=== PATIENT | male | born 1995 | race Caucasian/White ===

== ENCOUNTER 2017-02-20 10:16 | Inpatient (IN) | payer OTHER ==
[~2017-02-20] VITALS: Ht 172.7 cm; Wt 106.3 kg
--- NOTE | ~2017-02-20 | INDIVTXPLN ---
"PATIENT: ANGÉLICA ANNE R | | [facility] UNIT #: [id number] | [address] AGE/SEX: 21 M : [birth year] | [address] | [place] [phone] ADMIT/REG DATE: 02/20/17 | ROOM: [facility] LOC: ADTC | ADTC | Individualized Treatment Plan Date: 03/12/17 Problem Statement/Issue Identified: Client needs to identify relapse warning signs and develop a plan to deal with them as they arise. Goal: Client will learn how to identify relapse triggers and make a plan of how to maintain his recovery. Objectives/Activities to achieve goal: 1. Client is to complete the Recovery Maintenance packet and process it with counselor. Due Date:03/20/17 Complete: Incomplete: Client signature Date Counselor signature Date Outcome/Measurement of Progress Towards Goal: Counselor's signature Date "
--- NOTE | ~2017-02-20 | TXPLANREV ---
"PATIENT: ANGÉLICA ANNE R | | [facility] UNIT #: [id number] | [address] AGE/SEX: 21 M : [birth year] | [address] | [place] [phone] ADMIT/REG DATE: 02/20/17 | [facility] LOC: ADTC | ADTC | Treatment Plan/Staffing Review Date: 03/05/17 Treatment plan was reviewed and determined appropriate as written: Yes Treatment plan was reviewed and the following changes/addition/deletions are necessary: Client is to continue working on treatment plan assignments. He is working on grief and feelings letters. Discharge plans were reviewed and determined appropriate as previously documented: Yes Discharge plans were reviewed and determined to be as follows: Client has made it perfectly clear he is returning to [place] and will get into an aftercare program when he gets there. He will also be recommended to attend AA/NA meetings, as well as to get and call a sponsor on a regular basis. Other pertinent issues discussed during this staffing review include: None at this time. Staff Present: Allison De La O PRIMARY COUNSELOR: KAE Torres Client Signature Counselor Signature Date Time "
--- NOTE | ~2017-02-20 | INDIVTXPLN ---
"PATIENT: ANGÉLICA ANNE R | | [facility] UNIT #: [id number] | [address] AGE/SEX: 21 M : [birth year] | [address] | [place] [phone] ADMIT/REG DATE: 02/20/17 | ROOM: [facility] LOC: ADTC | ADTC | Individualized Treatment Plan Date: 02/26/17 Problem Statement/Issue Identified: Client has learned to deny or stuff feelings; needs to learn to identify and process feelings, including grief, in a clean/sober manner. Goal: Client will learn how to identify and express feelings in a healthy, clean/sober manner. Objectives/Activities to achieve goal: 1. Client is to complete the Grief packet, and process it with counselor. Due Date:03/05/17 Complete: Incomplete: 2. Client is to write feelings letters to the following people, each separately, and process them with counselor and in family group, if able: His father, sisters, brother and grandmother. Due Date:03/05/17 Complete: Incomplete: Client signature Date Counselor signature Date Outcome/Measurement of Progress Towards Goal: Counselor's signature Date "
--- NOTE | ~2017-02-20 | CLPRLASSUM ---
PATIENT: ANGÉLICA ANNE R | | [facility] UNIT #: [id number] | [address] AGE/SEX: 21 M : [birth year] | [address] | [place] [phone] ADMIT/REG DATE: 02/20/17 | ROOM: [facility] LOC: ADTC | ADTC | Client Problem List/Assessment Summary Date: 02/26/17 Problems identified by the client: Client reported he is now on probation on drug charges and was told he needed to come to treatment. Problems identified by significant others: Same Client's Strengths: Client identified he is friendly and hard working as his strengths. Problem List:Code: T Client continues to use alcohol &/or drugs despite ongoing negative consequences. Code: T Client does not "reach-out to others for help" and instead resumes using alcohol &/or drugs. 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 Code: T Client needs to identify relapse warning signs and develop a plan to deal with them as they arise. Code Carrera: T: to be addressed during course of treatment O: problem noted, expected to resolve itself with abstinence--specific tx plan not required R: problem noted, will be referred upon discharge PRIMARY COUNSELOR: KAE Torres
--- NOTE | ~2017-02-20 | INDIVTXPLN ---
"PATIENT: ANGÉLICA ANNE R | | [facility] UNIT #: [id number] | [address] AGE/SEX: 21 M : [birth year] | [address] | [place] [phone] ADMIT/REG DATE: 02/20/17 | ROOM: [facility] LOC: ADTC | ADTC | Individualized Treatment Plan Date: 02/26/17 Problem Statement/Issue Identified: Client continues to use alcohol &/or drugs despite ongoing negative consequences, and he did not reach out to someone for help. Goal: Client will learn to identify negative consequences of his addiction, attend AA/NA meetings and meet men in recovery. Objectives/Activities to achieve goal: 1. Client is to complete the How to Get Started packet, process it with counselor and selected pages in group. Due Date:03/01/17 Complete: Incomplete: 2. Client is to complete Step 1, process it with counselor and selected pages in group. Due Date:03/05/17 Complete: Incomplete: 3. Client is to attend AA/NA meetings, ask for and get at least 5 names and numbers of men in recovery and share that list with counselor. Due Date:ongoing Complete: Incomplete: Client signature Date Counselor signature Date Outcome/Measurement of Progress Towards Goal: Counselor's signature Date "
--- NOTE | ~2017-02-20 | TXPLANREV ---
"PATIENT: ANGÉLICA ANNE R | | [facility] UNIT #: [id number] | [address] AGE/SEX: 21 M : [birth year] | [address] | [place] [phone] ADMIT/REG DATE: 02/20/17 | ROOM: [facility] LOC: ADTC | ADTC | Treatment Plan/Staffing Review Date: 03/19/17 Treatment plan was reviewed and determined appropriate as written: Yes Treatment plan was reviewed and the following changes/addition/deletions are necessary: Client is to continue working on treatment plan assignments. He is finishing up with recovery maintenance. Discharge plans were reviewed and determined appropriate as previously documented: Yes Discharge plans were reviewed and determined to be as follows: Client plans to go home to [place], attend aftercare with Ruth Thomas, and is to attend 3-5 AA/NA meetings per week, call his sponsor on a regular basis and return to his job. Other pertinent issues discussed during this staffing review include: None Staff Present: Jossy De La O PRIMARY COUNSELOR: KAE Torres Client Signature Counselor Signature Date Time "
--- NOTE | ~2017-02-20 | TXPLANREV ---
"PATIENT: ANGÉLICA ANNE R | | [facility] UNIT #: [id number] | [address] AGE/SEX: 21 M : [birth year] | [address] | [place] [phone] ADMIT/REG DATE: 02/20/17 | [facility] | Treatment Plan/Staffing Review Date: 03/12/17 Treatment plan was reviewed and determined appropriate as written: Yes Treatment plan was reviewed and the following changes/addition/deletions are necessary: Client is to continue working on treatment plan assignments. He is finishing up with feelings letters and will begin working on relapse prevention. Discharge plans were reviewed and determined appropriate as previously documented: Yes Discharge plans were reviewed and determined to be as follows: Client plans to return to [place], where he has a counselor, and he is scheduled to see her on 03/21 @ 2:00. 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 Other pertinent issues discussed during this staffing review include: None at this time. Staff Present: Allison De La O PRIMARY COUNSELOR: KAE Torres Client Signature Counselor Signature Date Time "
--- NOTE | ~2017-02-20 | RESCARESUM ---
"PATIENT: ANGÉLICA ANNE R | | [facility] UNIT #: [id number] | [address] AGE/SEX: 21 M : [birth year] | [address] | [place] [phone] ADMIT/REG DATE: 02/20/17 | ROOM: [facility] LOC: ADTC | ADT | Summary of Residential Care Primary Counselor: Kenya PAL Date of Admission: 02/20/17 Date of Discharge: 03/20/17 Referral Source: Court Bailiff Or Sheriff, Jarett Kohli Primary Care Provider Prior to Admission: Self Admitting Diagnosis: F15.20 Stimulant Use Disorder, Severe; F12.20 Cannabis Use Disorder, Severe; F10.20 Alcohol Use Disorder, Moderate; Obesity; Z720 Tobacco Use; Elevated Blood Pressure Discharge Diagnosis: Same Goals Achieved: Angélica was able to identify negative consequences of his addiction, as well as to gain insight to the disease concept. He completed written assignments, including Step 1, and he wrote and processed feelings letters to various family members. He worked on recovery maintenance. Continued Obstacles to Sobriety/Relapse Issues: Women, self-will, not getting a sponsor, not going to meetings or aftercare, not dealing with feelings, not returning to his job and not learning how to work a strong program of recovery. Family Issues Addressed: The only issues addressed were with his mother, who . He was able to complete the grief packet and he wrote feelings letters to other various family members. Y Individual Therapy Y Group Therapy Y Educational Series on Substance Abuse Y Parents/Significant Others Attended Family Program N Acute Medical Problems During the Course of Treatment N Transferred to Hospital During the Course of Treatment Y Accepting of Substance Abuse Problem N Non-accepting of Substance Abuse Problem N Required Psychological or Psychiatric Consultation During the Course of Treatment Completed AA Step # 1 During This Level of Care Significant Incidences During Treatment: Angélica had to be placed on a change contract, so he could focus on himself and his own recovery, and not the women. Reason For Discharge: Y Completed Residential [place] Goals and Ready For Next Level of Care N Left Tx Against Medical Advice/Treatment Goals Not Complete N Completed Residential Tx Goals But Refusing Continuing Care Recommendations PATIENT: ANGÉLICA ANNE R | | [facility] UNIT #: [id number] | [address] AGE/SEX: 21 M : [birth year] | [address] | [place] [address] ADMIT/REG DATE: 02/20/17 | ROOM: [facility] LOC: ADTC | ADTC | Summary of Residential Care N Discharged Due to Noncompliance/Treatment Goals not Completed N Discharged Earlier Than Planned Due to: Continuing Care Plan/Recommendations: N Intensive Partial Care Y Sponsor N Partial Care Y AA Meetings/NA Meetings Y Outpatient N Co-dependency Services N Therapeutic Community N 1/[address] N Mental Health Therapy N Marriage Counseling N Other Specific Continuing Care Plan: It is recommended that Angélica go to see Ruth Elizabeth for his aftercare plan, beginning on 03/21 @ 2:00. It is further recommended that he attend 3-5 AA/NA meetings per week, get and call a sponsor on a regular basis, return to his job, and learn how to work a strong program of recovery. PRIMARY COUNSELOR: KAE Torres"
--- NOTE | 2017-02-20 15:00 | NUR ---
INITIAL SESSION 1 HR: Clt was oriented to tx plans, schedules and what to expect from things. He has never been to tx, was placed on 5 yrs probation on a drug and gun charge, and has several family members living here and in [place]. Clt stated he is very nervous and scared about this, as he's never been to tx. He heard it only takes a couple days to start to feel comfortable. He is to begin working on initial paperwork.
--- NOTE | 2017-02-20 15:07 | NUR ---
ADMISSION NOTE Rights/Responsibilities: Copy given and explained to client. Signed and accepted by client. Client oriented to physical lay out of the ADTC unit, given Big Book and admission packet. A Rod was assigned. Shola Client is a 21yr old single male. Referred by probation. Brought to tx by sister. Lives in [place], [place]. DOC, Cannabis, last used 03/03/17, 1/2 oz. daily. No allergies, No meds. Whole family plans on participating in tx. Was searched no contraband found. Initial paperwork given and guidelines gone over. Doctor has been notified.
--- NOTE | 2017-02-20 20:55 | NUR ---
education: 1 hour video on unresolved anger and group discussion with counselor
--- NOTE | 2017-02-20 22:04 | NUR ---
Tech note: Tech note: Client worked on beaded project and attended an onsite NA meeting. He was checked into his room, seen by the DR and gave his first intro. SE; Entering treatment
--- NOTE | 2017-02-21 04:02 | NUR ---
Bed note: Client was in bed with eyes closed and no distress at all bed checks.
--- NOTE | 2017-02-21 08:20 | NUR ---
TRAUMA NOTE: Clt identified loss of a loved one as trauma.
--- NOTE | 2017-02-21 08:21 | NUR ---
FAMILY CONTACT: A call was made to ari's sister in [place], who was informed of visiting hours and family edu. A request that she return my call was made. Another call was made to GI family and the same info was left.
--- NOTE | 2017-02-21 10:19 | NUR ---
Tech Note: Client participated in Spiritual Enrichment. Client stated that he is working on,"How to Get Started in Treatment." Client stated that he knows one male and one female peer from outside of treatment.
--- NOTE | 2017-02-21 11:30 | NUR ---
AM GRP 1.5 HRS, Ratio 1:11/ Clt sat mostly quiet, after hearing grp rules.
--- NOTE | 2017-02-21 13:37 | NUR ---
Education 1 Hour: Client heard a presentation from a member of the recovery community who shared his experience, strength and hope.
--- NOTE | 2017-02-21 16:26 | NUR ---
step education 1 hr/ Focus was on step 2, handed out some questions they completed on paper and then opened it up for discussion. This client participated.
--- NOTE | 2017-02-21 23:29 | NUR ---
Tech Note: Client attended Guided Meditation and A.A.Meeting. Client was late to Community Meeting due to showering. He showed up for meeting at 2200 SE: Absent
--- NOTE | 2017-02-22 04:24 | NUR ---
Eduction: 1 Hour. Client attended "Unresolved Anger" video & discussion presented by staff.
--- NOTE | 2017-02-22 11:56 | NUR ---
Group 1.5 Hr Ratio 1:9/Topics today were two getting started packets, forgiveness and dealing with bad childhoods. Client was quiet all of group but did appear to be paying attention.
--- NOTE | 2017-02-22 13:00 | NUR ---
PEER REVIEWS 1.5 HRS: Clt participated in peer review process and was able to give open and honest feedback to those receiving a review.
--- NOTE | 2017-02-22 16:20 | NUR ---
Tech Note: Client participated in group walk for exercise and watched "Recovery Issues Part 3" for afternoon video. Client is working on Getting Started.
--- NOTE | 2017-02-22 22:44 | NUR ---
TECH NOTE: Client participated in reading guidelines and watched tv/movies. Attended optional off site AA meeting SE: all day
--- NOTE | 2017-02-23 04:08 | NUR ---
Bed Note: Clt lay motionless in bed with eyes closed showing no distress at all bed checks.
--- NOTE | 2017-02-23 16:00 | NUR ---
Tech Note: Client attended NA Panel and is working on Getting Started. Clt had visitors.
--- NOTE | 2017-02-23 20:11 | NUR ---
Tech note: Clt played a game for recreation and attended offsite AA mtg. Watched tv and played cards. SE was seeing sister and niece
--- NOTE | 2017-02-24 04:34 | NUR ---
Bed Note: Clt lay motionless in bed with eyes closed showing no distress at all bed checks.
--- NOTE | 2017-02-24 12:02 | HP ---
ADMIT: 02/20/2017 RM/LOC: Vel[facility] MR#: [id number] [address] [place], [place] [address] ANGÉLICA ANNE [address] [address] History and Physical SEX: M AGE: 21 : 1995 DATE OF SERVICE: CHIEF COMPLAINT: Drug and alcohol dependency. HISTORY OF PRESENT ILLNESS: Angélica is a 21-year-old, single, male, referred to residential level of treatment at [facility] on February 20, 2017. He had prior arrest for possession of meth and marijuana and was in and out of prison for about 10 months. He states he was subsequently referred to residential level of treatment. Angélica's drug of choice on admission is cannabis. He first started smoking pot around 11 years of age with friends. In grade school, he smoked around weekends. By [employer], he was smoking daily and would smoke an 8 to 0.25 ounce pot a week. From high school until a year ago, he would smoke a half to an ounce of pot a day. He states his last use was on March 03, 2016, prior to going to prison. Second drug of choice is methamphetamines. He first started using meth at 16 years of age when he smoked with his friends. Initially used about a g on weekends. He dropped out of high school when he was around 18, he has been doing daily meth off and on ever since. He states he usually about an eight ball. His heaviest use was 19 when he was using over an 8-ball a day. He denies ever doing IV drugs. He states he had an uncle who of IV drug use and has never used it. His last methamphetamine use was 03/03/2016. Third drug of choice is likely alcohol. He states he never really it used a lot. He states he sporadically used it. He would usually only have a couple mixed drinks. He admits to being intoxicated about 10 times his life. He states that he got a DUI a couple days after his 19th birthday. His last alcohol was 03/03/2016. He denies any other illicit drug use. PAST MEDICAL HISTORY: Operations: None. Illnesses: None. MEDICATIONS: None. ALLERGIES: NONE KNOWN. SOCIAL HISTORY: He is a 21-year-old, single, male. He has no children. He smokes less than one pack of cigarettes daily. FAMILY HISTORY: Includes coronary artery disease, cancer, and hypertension in his mother and maternal grandmother, diabetes in grandparents. Father was an alcoholic. Mom was a prescription pain pill user, and a number of uncles, who used methamphetamines and one of IV meth overdose. REVIEW OF SYSTEMS: Negative. ADMIT: 02/20/2017 RM/LOC: Velia [facility] MR#: [id number] [facility] [address] [address] [place] [address] [place] [address] History and Physical SEX: M AGE: 21 : 1995 PHYSICAL EXAMINATION: VITAL SIGNS: He is 5 feet 8 inches with a weight of 106 kg. Blood pressure 147/95 with a pulse of 97 and temp 96.9. GENERAL APPEARANCE: Is that of a 21-year-old male, who is alert, oriented, in no acute distress. Appears his stated age. HEENT: Pupils are reactive. Extraocular muscle intact. TMs normal. Throat normal. NECK: Normal. HEART: Regular without murmur. LUNGS: Clear. ABDOMEN: Soft, nontender, benign. AND RECTAL: Deferred. EXTREMITIES: Reveal no clubbing, cyanosis, edema, or tracks. NEURO: Exam is normal including light touch, strength, DTRs. ASSESSMENT: 1. Stimulant use disorder, severe, in full sustained remission. 2. Cannabis use disorder, severe, in full sustained remission. 3. Alcohol use disorder, [id number], in full sustained remission. 4. Obesity. 5. Tobacco use disorder. 6. Elevated blood pressure. PLAN: We will do serial blood pressure and heart rate monitoring. Proceed with drug and alcohol abuse dependency treatment and counseling. Further evaluation and management based on course during hospitalization. Please see his hospital record for the details. Braxton Dillon MD/ abigail JOB #: [id number] CC: Braxton Dillon, Attending Physician FAMILY PHYSICIAN, Family Physician
--- NOTE | 2017-02-24 15:43 | NUR ---
Tech Note: Client participated in Big Book Study. Client stated that he is working on, "How to Get Started in Treatment."
--- NOTE | 2017-02-24 22:36 | NUR ---
Tech Note: Clt attended AA panel, played game with peer and watched tv. SE was tono
--- NOTE | 2017-02-25 04:36 | NUR ---
Bed Note: Clt lay motionless in bed with eyes closed showing no distress at all bed checks.
--- NOTE | 2017-02-25 10:13 | NUR ---
Tech notes: Client is working on Getting started
--- NOTE | 2017-02-25 12:43 | NUR ---
Group 1.5 hr/10:1 Clients heard peers share packets, this client was attentive.
--- NOTE | 2017-02-25 13:30 | NUR ---
Education: Client attended education by Franci on Infection prevention.
--- NOTE | 2017-02-25 16:00 | NUR ---
Recovery 101 1 hr/ Clients all were asked to share what they worked on in treatment or past treatments that really helped them and/or their experience with working an AA/NA program of recovery-what went well. This client was attentive.
--- NOTE | 2017-02-25 18:10 | NUR ---
Education: 1 Hour. Client attended "Adult Children of Alcoholics" lecture presented by staff.
--- NOTE | 2017-02-25 23:13 | NUR ---
tech note: Client played a game for recreation & attended onsite NA meeting.Seen sitting by female peer in the NA meeting-they were sitting without other people right next to them. SE: Supper.
--- NOTE | 2017-02-26 04:31 | NUR ---
BED NOTE: Client was in bed, motionless with eyes closed all three bed checks.
--- NOTE | 2017-02-26 11:04 | NUR ---
IS 1 HR: Processed padmini's BPS. He went into great detail about his childhood. He stated he first used any type of drug at age 11. His parents after his mom started using pills badly. He lived w/ her, but was taken from her when he was young. He lived w/ his Dad for a short period of time, only to return to her. SHe from her disease so padmini will need to do grief work on this. His Dad has remarried and he has 3 little brothers and sisters from this marraige, and he has a brother and sister, who are biological. He also has a sister who is his Mom's daughter w/ someone other than his Dad. He explained that when he went to court, he was sent to [facility] for 90 days, which he understands is [facility], until the roll reclaimer sentenced him here and probation. Padmini hopes to return to [place], where he'll live w/ his sister and do his probation there.
--- NOTE | 2017-02-26 16:00 | NUR ---
Relapse Prevention, 1.0 hours, Client attended and actively participated in relapse prevention education which focused on internal and external triggers.
--- NOTE | 2017-02-26 16:33 | NUR ---
Tech Note: Client participated in Nutritional Services presentation and is working on Getting Started.
--- NOTE | 2017-02-26 22:41 | NUR ---
Education: 1 hour lecture given by counselor on co-dependency
--- NOTE | 2017-02-26 22:47 | NUR ---
Tech note: clients played catchphrase for rec, participated in guided meditation and attended AA meeting SE: 6 month coin
--- NOTE | 2017-02-27 04:34 | NUR ---
bed note: client was in bed with eyes closed and motionless at all bed checks.
--- NOTE | 2017-02-27 09:50 | NUR ---
Tech notes: Client is working on Step 1
--- NOTE | 2017-02-27 11:30 | NUR ---
GROUP 1.5 HRS. 1:12 Clients participated in orienting new peer to purpose and rules of group. Discussion included healthy coping skills to deal with stress and feelings. Peer processed from his step 1 assignment identifying how he betrayed his values in his addiction. This client sat quiet.
--- NOTE | 2017-02-27 12:42 | NUR ---
Group 1.5 hr/10:1 Clients heard peers share packets, this client was attentive.
--- NOTE | 2017-02-27 13:13 | NUR ---
Education note: Client attended educational speaker Mario Linares
--- NOTE | 2017-02-27 17:33 | NUR ---
SPIRITUAL EDUCATION 1 HR. Today we used music to invoke discussion, symbolize how it can be either positive spirituality or negative spirituality, and discussed the feelings. We used one song that depicted addiction, one that talked about recovery, and since we are close to Mother's Day, one that depicted addiction in parents and forgiveness.
--- NOTE | 2017-02-27 18:15 | NUR ---
Education: 1 Hour. Client attended "Boudaries" lecture given by staff.
--- NOTE | 2017-02-27 22:50 | NUR ---
Tech Note: Client played a game for rec, and attended The on unit N.A.Meeting. SE: 6 Month tag in N.A.
--- NOTE | 2017-02-28 04:28 | NUR ---
Bed Note: Client was in bed with eyes closed and motionless at all bed checks.
--- NOTE | 2017-02-28 11:30 | NUR ---
AM GRP 1.5 HRS, Ratio 1:11/ Clt sat mostly quiet, until prompted, then shared about himself, and how he "knows" what he'll have to do to stay clean/sober. He plans to return to [place] when he's done w/ tx.
--- NOTE | 2017-02-28 16:45 | NUR ---
FAMILY EDUCATION 3 HRS. Client attended alone and took part in the discussion on the disease concept. All related to progression and consequences of addiction. This client was mostly quiet but appeared attentive.
--- NOTE | 2017-02-28 18:15 | NUR ---
Education 1HR: Clt watched video called "Predator part 1" by Lion Siegel with staff present.
--- NOTE | 2017-02-28 23:01 | NUR ---
Tech Note: Client took a walk for rec and attended the A.A.Meeting. SE: Walk for rec
--- NOTE | 2017-02-28 23:20 | NUR ---
1:00 pm. Education Note: Client watched video "Inside the Addictive Personality"
--- NOTE | 2017-03-01 04:06 | NUR ---
Bed Note: Client was in bed and motionless at all bed checks.
--- NOTE | 2017-03-01 11:30 | NUR ---
Group 1.5 hr/ 11:1 Clients all involved in discussions about addiction and recovery. THis client was attentive, was asked to share about himself and did tell he used weed since 11 and meth since 17, hurt grandma with his addiction which he hates. A GF moved him out of [place] which helped him for awhile, ashamed he threw his clean time away.
--- NOTE | 2017-03-01 14:36 | NUR ---
PEER REVIEWS 1.5 HRS: Clt participated in peer review process and was able to give open and honest feedback to those receiving a review.
--- NOTE | 2017-03-01 15:37 | NUR ---
Tech Note: Client participated in group walk and watched "Marijuana" by Lion Siegel. Assignment being worked on is Step 1.
--- NOTE | 2017-03-01 23:08 | NUR ---
Tech note: Client played games and watched movies. Client walked to an offsite AA meeting.
--- NOTE | 2017-03-02 03:57 | NUR ---
Bed note: Client was in bed with eyes closed and no distress at all bed checks
--- NOTE | 2017-03-02 12:30 | NUR ---
IS 1 HR: Padmini shared from his How to Get Started pkt. He is to process in grp. He stated he is struggling with even trying to get numbers here, as he is planning to return to [place] as soon as he's done with tx. He heard how this is just practice for him to learn how to approach men and ask for their number. He stated it is hard for him to go to new people, but it's better than it used to be. Padmini stated he has a brother from [place] who will be coming to visit this weekend.
--- NOTE | 2017-03-02 16:41 | NUR ---
Tech Note: Client went to A.A.Meeting at [address]. Client also went on a walk and had a visit. Client is working on Step one and had appointment with counselor
--- NOTE | 2017-03-02 21:53 | NUR ---
Tech note: Client's were just starting to grill around 6pm so we did not have rec this evening. Client walked to an offsite AA meeting, played games and watched movies. SE; Family
--- NOTE | 2017-03-03 04:43 | NUR ---
tech note: client was motionless in no distress at all bed checks.
--- NOTE | 2017-03-03 17:22 | NUR ---
Tech Note: Client participated in Big Book study. Client attended pentecostal. Client stated that he is working on Step One. Client received a visit.
--- NOTE | 2017-03-03 23:11 | NUR ---
tech note: Client participated in community clean & co-chaired CONTROLS DESIGN ENGINEER meeting. Client talked on the phone. SE: CONTROLS DESIGN ENGINEER.
--- NOTE | 2017-03-04 04:22 | NUR ---
tech note: client was motionless in no distress at all bed checks.
--- NOTE | 2017-03-04 11:30 | NUR ---
Experiential Group 1.5 hr/ Clients all participated in looking at family dynamics and feelings through sculpturing and participated with feedback, relating and/or role-playing. This client was attentive.
--- NOTE | 2017-03-04 17:00 | NUR ---
FAMILY EDUCATION 3 HRS. Client attended alone and took part in the discussion on the family roles, codependency and detachment. Client was mostly quiet but did participate when prompted.
--- NOTE | 2017-03-04 17:32 | NUR ---
Tech Note: Client went for an outdoor walk in the afternoon. Client stated that he is working on Step One.
--- NOTE | 2017-03-04 20:44 | NUR ---
FAMILY GROUP 5:1/2/ HR: Client, peers and attending family members heard FEELINGS LETTERS processed by one family. These letters and the subject matter, their daughter's and the resulting chain of events led to much personal sharing. Several members in the group realized that they had known the young woman and related their personal experiences with her and the lives she had touched during her brief life. The couple seemed to be both touched and comforted. This client, though mostly quiet, did respond when prompted and shared briefly about his mother's sudden (apparent consequences of a prescription drug addiction) when he was only 13 y/o. Client verbalized regret over the joking references to "leaving to get f__ked up" as the last words he said to his mother before her later that evening. Client said he is working on a Grief packet.
--- NOTE | 2017-03-04 20:45 | NUR ---
Education 1 HR: Clt listened to lecture given by counselor on communication.
--- NOTE | 2017-03-04 23:00 | NUR ---
Client attended Family SE: Group
--- NOTE | 2017-03-05 04:55 | NUR ---
Client was in bed and motionless at all bed checks
--- NOTE | 2017-03-05 11:40 | NUR ---
GROUP 1.5 HRS. 1:11 Client participated in orienting new peer to purpose and rules of group. Group discussion included the progression of the addiction and the effects on family and lives including suicide attempts. Peer processed goodbye letter to addiction and discussed the need to end the relationship. This client was quiet but said he had assignment to process however time did not permit today so he agreed to go tomorrow.
--- NOTE | 2017-03-05 15:06 | NUR ---
Tech Note: Client joined group for afternoon walk, listened to speaker from the [facility] [place] and is working on Step 1.
--- NOTE | 2017-03-05 15:44 | NUR ---
Tech Note: Client attended Relapse Prevention education with Kenya.
--- NOTE | 2017-03-05 19:50 | NUR ---
Education: 1 hour lecture on STD/AID/HIV gipravin by [facility].
--- NOTE | 2017-03-05 22:22 | NUR ---
Tech note : Client worked on oneforty crafts and get well cards. Client participated in guided meditation and went to an onsite AA meeting.
--- NOTE | 2017-03-06 04:13 | NUR ---
Bed note: Client was in bed with eyes closed and no distress at all bed checks
--- NOTE | 2017-03-06 11:09 | NUR ---
Tech Note: Client is working on Step 1 and a Grievance Letter.
--- NOTE | 2017-03-06 11:30 | NUR ---
GROUP 1.5 HRS. 1:10 Group discussion included issues and conflict between peers on the unit. This client was prompted by counselor to process his HOW TO GET STARTED IN TREATMENT as there was not time in yesterday's group. Client received positive support from peers and all encouraged him to open up. Peer processed step 1 assignment identifying how values are betrayed in addiction.
--- NOTE | 2017-03-06 13:17 | NUR ---
Tech Note: Client walked in the hallways for afternoon exercise.
--- NOTE | 2017-03-06 13:21 | NUR ---
Education One Hour: Client heard from members of the recovery community, who shared their experience, strength and hope.
--- NOTE | 2017-03-06 17:25 | NUR ---
SPIRITUAL EDUCATION 1 HR. Topics today were orienting newcomers and then broke into groups and did presentations on their sections from TOWAR[employer] SPIRITUALITY.
--- NOTE | 2017-03-06 18:44 | NUR ---
Education: 1 hour lecture given by counselor on "Disease concept".
--- NOTE | 2017-03-06 22:13 | NUR ---
Tech note: Client played catch phrase for rec and attended an onsite NA meeting. SE: Rec
--- NOTE | 2017-03-07 04:59 | NUR ---
Bed note: Client was in bed with eyes closed and no distress at all bed checks.
--- NOTE | 2017-03-07 10:36 | NUR ---
Tech Note; Client participated in light stretching for morning exercise. Client stated that he is working on Step One.
--- NOTE | 2017-03-07 11:30 | NUR ---
AM GRP 1.5 HRS, Ratio 1:12/ Clt participated in grp discussion on various topics, including having fun in recovery, how addiction hurts everyone around them, and what to do just to stay in recovery. This clt participated, however, he generally needs to be prompted.
--- NOTE | 2017-03-07 15:59 | NUR ---
Step Education 1 hr/Focus was on step 4 making a searching and fearless moral inventory of ourselves. Handed out some questions each person answered on paper and then we discussed. This person participated.
--- NOTE | 2017-03-07 16:00 | NUR ---
IS 1 HR: Padmini shared that he didn't have his step 1 done yet, so heard it needs to get done. He stated he is stuck on pages 10-11 so we discussed how those are the most important pages, as they help him see the negative consequences of his addiction. Padmini shared about things w/ his Mom's and his grandma "knowing" something was wrong. He is finishing up with the grief pkt too. Padmini's plans are to return to [place] and see Ruth Thomas for aftercare.
--- NOTE | 2017-03-07 16:19 | NUR ---
Education 1 Hour: Client heard from two members of the recovery community, who shared their experience strength and hope.
--- NOTE | 2017-03-07 20:23 | NUR ---
Education: 1 Hour. Client attended Fadi Thompson "Unhealthy Families" video.
--- NOTE | 2017-03-07 22:52 | NUR ---
Client went on a walk for rec, participated in guided meditation, and attended the on unit A.A.Meeting. SE: Get to go home instead of residential house.
--- NOTE | 2017-03-08 05:33 | NUR ---
tech note: client was motionless in no distress at all bed checks.
--- NOTE | 2017-03-08 11:58 | NUR ---
Group 1.5 Hr Ratio 1:11/Topics today were two Getting started packets, feelings letters and a letter to self. Client was quiet all of group and did not share a thing.
--- NOTE | 2017-03-08 14:37 | NUR ---
Tech Note: Client joined our group walk for exercise. Watched video titled "Sound of Silence" and is working on Step 1 and a Nafham Pckt.
--- NOTE | 2017-03-08 15:44 | NUR ---
PEER REVIEWS 1.25 HRS: Clt participated in peer reviews and took a risk to give open and honest feedback to those receiving a review.
--- NOTE | 2017-03-08 20:24 | NUR ---
TECH NOTE: Client participated in reading of guidelines, watched TV/movies SE: All day
--- NOTE | 2017-03-09 04:30 | NUR ---
BED NOTE: Client was in bed, motionless with eyes closed all bed checks.
--- NOTE | 2017-03-09 16:12 | NUR ---
Tech Note: Client is working on a grief packet. Had visit from family.
--- NOTE | 2017-03-09 20:16 | NUR ---
Tech note: Clt played a game for recreation and attended offsite AA mtg. Watched tv, used phone and played cards. SE was NERY
--- NOTE | 2017-03-10 04:24 | NUR ---
BED NOTE: Client was in bed motionless with eyes closed all three bed checks.
--- NOTE | 2017-03-10 15:39 | NUR ---
Tech Note: Client stated that he is working on, "Grief."
--- NOTE | 2017-03-10 22:55 | NUR ---
Tech Note: Client attended the A.A.Panel with Vik Martinez Client also attended the COMMERCIAL REPORTER meeting SE: COMMERCIAL REPORTER Meeting
--- NOTE | 2017-03-11 04:35 | NUR ---
Client was laying in bed and motionless at all bed checks.
--- NOTE | 2017-03-11 09:40 | NUR ---
Tech note: Client is working on Grief pkt.
--- NOTE | 2017-03-11 12:53 | NUR ---
Education Note: Clients attended speaker for education Kit J.
--- NOTE | 2017-03-11 15:56 | NUR ---
PEER REVIEWS 1.25 HRS: Clt participated in peer reviews and took a risk to give open and honest feedback to those receiving a review.
--- NOTE | 2017-03-11 16:00 | NUR ---
RECOVERY 101 1 hr/ Clients discussed what they are learning from attending the 12 step recovery meetings about fundamentals of recovery, how to work a program such as: get and use a sponsor, work the steps, read C.A.L., HOW/honesty, openminded &willing, service work, HP/spirituality, opening up, slogans, serenity prayer, home group/meetings, etc. Clients shared and got into story telling at times. They learned 15% is addiction and 85% is the living problem so this is why keep going to meetings and working the program is vital.
--- NOTE | 2017-03-11 18:18 | NUR ---
Education: 1 Hour. Client attended "Feelings" lecture presented by staff.
--- NOTE | 2017-03-11 22:50 | NUR ---
tech note: Client played Catch Phrase for recreation & attended onsite NA meeting. Client was redirected by staff for eating food in the toney. Client was seen sitting alone with female peer ST in the recreation room before the NA meeting started. He & this female peer ST went out to the smoke hut & were late for the NA meeting. After the client meeting this client was swinging a male peer & was redirected by tech to stop. Client wasn't in his room by [place]. SE: NA meeting.
--- NOTE | 2017-03-12 04:45 | NUR ---
tech note: client was motionless in no distress at all bed checks.
--- NOTE | 2017-03-12 10:18 | NUR ---
REFERRAL: Clt has an appt scheduled with his counselor in [place], Ruth Thomas on 03/21 @ 2:00.
--- NOTE | 2017-03-12 15:06 | NUR ---
A.M. 1.5 hr group/ratio 10/31/ Group heard a step 1, how to get started, grief letter and discussed the importants of not glorifying as one client was confronted on this. This client shared his step one and did a fair job.
--- NOTE | 2017-03-12 15:46 | NUR ---
Relapse Prevention, 1.0 hours, Client attended and actively participated in relapse prevention education which focused on compulsive behaviors and relapse.
--- NOTE | 2017-03-12 16:05 | NUR ---
Tech Note: Client watched Part 2 of Predator by Lion Siegel and had Relapse Prevention for 3:00 education. Assignment being worked on: Feelings Letters.
--- NOTE | 2017-03-12 16:21 | NUR ---
Education Note: Client attended Relapse Prevention presented by counselor Allison.
--- NOTE | 2017-03-12 20:16 | NUR ---
Education: 1 hour lecture given by counselor on relapse.
--- NOTE | 2017-03-12 20:23 | NUR ---
tech note: Client went for walk for rec, participated in guided meditation and attended AA meeting
--- NOTE | 2017-03-12 23:24 | NUR ---
Tech Note: Client went on a walk for rec and attended the on unit A.A.Meeting. Client participated in Guided Meditation at 1930. SE: All Day
--- NOTE | 2017-03-13 04:54 | NUR ---
Bed note: client was in bed with eyes closed and no distress at all bed checks.
--- NOTE | 2017-03-13 07:57 | NUR ---
IS 1 HR: Clt was confronted about being seen sitting with the women. He heard it is detrimental to their tx, let alone, is own. He was unable to understand, until we discussed it, and was then able to see how important male relationships are for men in recovery, and the same for women. He stated he has always gotten along better w/ women, so heard from here on out, he needs to form relationships with men and not sit w/ women.
--- NOTE | 2017-03-13 10:17 | NUR ---
Tech notes: Client is working on Fl's
--- NOTE | 2017-03-13 11:30 | NUR ---
BIG GROUP 4:21 Group was brought together to discuss issues of old behaviors, treatment relationships and other violations of guidlines that are being kept secret. All were encouraged to look at the difficulty they have confronting with assertiveness, rather than passive/aggressive. This client was confronted by his counselor as he was sitting by new female peer. He is noted to have a smirk on his face throughout the entire group. He did change seats with female peer after she was confronted about sitting by another male peer. Peers had confronted this client about spending excessive amount of time female peer .
--- NOTE | 2017-03-13 13:45 | NUR ---
Educational note: Client watched a video for education.
--- NOTE | 2017-03-13 17:15 | NUR ---
SPIRITUaL EDUCATION 1 HR. Clients were oriented to the group and learned difference between spirituality and tenriism. We addressed GRATITUDE today with discussion, worksheet and activity.
--- NOTE | 2017-03-13 18:20 | NUR ---
Education: 1 Hour. Client attended "Self Esteem" lecture presented by staff.
--- NOTE | 2017-03-13 23:06 | NUR ---
tech note: client went on a walk for recreation & attended the onsite NA meeting. Complimented by peer for opening up. Client was horseplaying during the client meeting with a male peer,when tech looked at him he stopped. SE: NA
--- NOTE | 2017-03-14 05:08 | NUR ---
Bed Note: Clt lay motionless in bed with eyes closed showing no distress at all bed checks.
--- NOTE | 2017-03-14 11:07 | NUR ---
Tech Note: Client participated in Spiritual Enrichment. Client stated that he is working on writing Feelings Letters.
--- NOTE | 2017-03-14 11:30 | NUR ---
AM GRP 1.5 HRS, Ratio 1:11/ Clt sat quietly, and each time it was brought up about the relationship he and a female peer are having, of which he continues to deny, he would shake his heard, roll his eyes and wasn't willing to talk about it.
--- NOTE | 2017-03-14 14:19 | NUR ---
IS 1 HR: Clt came in immediately defensive, asking why we were meeting, and when asked what he thinks is going on, he had an attitude. He asked if he is being placed on a contract and he heard yes. He was confronted, as one of the counselors heard him say if he gets placed on a contract, he won't sign it. He stated he doesn't want to sign it, so we again discussed the importance of finding male relationships. He stated he has already changed his behavior, so heard it should be easy to follow the contract. Clt agreed to sign it, but still doesn't understand the reasoning.
--- NOTE | 2017-03-14 17:12 | NUR ---
step education 1 hr/ Focus was on step 6 and looking at character defects and letting God remove them. Each person took some time looking at a list of character defects and wrote out answers to a set of questions and then shared and discussed. This client participated.
--- NOTE | 2017-03-14 19:14 | NUR ---
Education 1 Hour: Client heard a presentation on marijuana.
--- NOTE | 2017-03-14 22:09 | NUR ---
Education 1 HR: Clt watched video by Jay "Beatriz Vargas" with staff present.
--- NOTE | 2017-03-14 22:28 | NUR ---
Tech Note: Clt walked for recreation, attended GM and onsite AA mtg. SE was walk
--- NOTE | 2017-03-15 04:43 | NUR ---
Bed Note: Clt lay motionless in bed with eyes closed showing no distress at all bed checks.
--- NOTE | 2017-03-15 11:30 | NUR ---
Group 1.5 hr/ 11:1 Clients all heard peers share in discussion about when is it addiction with loss of control or being a "functional addict" as peer asked questions. Also they introduced self to newcomer. This client was attentive.
--- NOTE | 2017-03-15 16:09 | NUR ---
Tech Note: Client listened to speaker Tommy Caro and is working on Feelings Letters.
--- NOTE | 2017-03-15 16:19 | NUR ---
PEER REVIEWS 1.25 HRS: Clt participated in peer reviews and took a risk to give open and honest feedback to those receiving a review. Client had a review and some of what he heard was he is unselfish in a selfish program, needs to focus on himself, nisn't here for the right reasons, class clown, very gaurded, isn't taking treatment seriously, has only two emotions: Happy and Angry, teetering on the edge, acts dumb, only opens up to a few people, needs to branch out, manipulates the system, dependent on women, and stubborn, its your way or the highway.
--- NOTE | 2017-03-15 20:37 | NUR ---
Tech note: client watched TV and movies. Walked to optional offiste AA meeting. SE:peer review
--- NOTE | 2017-03-16 04:55 | NUR ---
Bed note: Client was in bed with eyes closed and no distress at all bed checks.
--- NOTE | 2017-03-16 16:46 | NUR ---
Tech Note: Client attended the A.A.Meeting at [facility] and [place] and is working on Feelings Letters.
--- NOTE | 2017-03-16 22:41 | NUR ---
Tech note: Client walked around the park a few times for rec. Client walked to an offsite AA meeting. SE: Family
--- NOTE | 2017-03-17 04:59 | NUR ---
Bed note: client was in bed with eyes closed and no distress at all bed checks.
--- NOTE | 2017-03-17 15:27 | NUR ---
TECH NOTE: Client participated in big book study, attended lutheran, completed chores and watched tv/movies. Went for walk
--- NOTE | 2017-03-17 23:08 | NUR ---
tech note: Client participated in Community Clean & attended HOOP MACHINE OPERATOR meeting. Client was redirected by Wangluotianxia for feet on the furniture. Client worked on bead project. SE: MACEY.
--- NOTE | 2017-03-18 04:40 | NUR ---
Bed note: client was in bed with eyes closed and no distress at all bed checks.
--- NOTE | 2017-03-18 14:56 | NUR ---
Tech note: Client is working on Fl's.
--- NOTE | 2017-03-18 22:51 | NUR ---
Tech Note: Clt walked for recreation and attended onsite NA mtg. Watched tv and movies. SE was NA mtg
--- NOTE | 2017-03-19 04:40 | NUR ---
Bed Note: Clt lay motionless in bed with eyes closed showing no distress at all bed checks.
--- NOTE | 2017-03-19 12:33 | NUR ---
1.5 hr res group/ratio 1:9/ Group heard a step one, a letter to addiction, and discussed the importants of keeping a balance of not doing to many nice things for others verses taking care of self. This client was quiet until called on and could not think of anything to say or relate to so I asked him about his aftercare plan and he shared he is going to [place].
--- NOTE | 2017-03-19 15:34 | NUR ---
Tech Note: Client participated in light stretching for morning exercise and went on an outdoor walk in the afternoon. Client stated that he is working on writing Feelings Letters.
--- NOTE | 2017-03-19 15:46 | NUR ---
Education 1 Hour: Client watched the video, "How to Sabotage your Treatment."
--- NOTE | 2017-03-19 22:48 | NUR ---
Tech note: Client walked a mile for rec, did guided meditation and attended an onsite AA meeting. Client was up past curfew. SE; last client meeting
--- NOTE | 2017-03-20 04:21 | NUR ---
Education: 1 Hour. Client attended presentation by staff on "Step 1."
--- NOTE | 2017-03-20 05:12 | NUR ---
Bed note: Client was in bed with eyes closed and in no apparent distress at all bed checks.
--- NOTE | 2017-03-20 07:51 | NUR ---
FINAL SESSION 1 HR: Clt shared that he now understands why he got placed on a contract, after watching so many people not focused on their tx. He stated he had lost his focus for a few days, but thinks he got it back in the past week. He stated it made him mad at first, but now he gets it. We completed his Continued Care plan, he did the survey and was given a coin and completed thru tx.
--- NOTE | 2017-03-20 10:07 | NUR ---
DISCHARGE NOTE Client left tx with friend, all personal belongings were sent with. Discharge instuction gone over and copy given.
--- NOTE | 2017-05-13 08:31 | DS ---
ADMIT: 02/20/2017 RM/LOC: [facility] MR#: [id number] [facility] [address] [place], [place] [id number] [address] [place] [address] General Discharge Summary SEX: M AGE: 21 : 1995 ADMISSION DATE: 02/20/2017 DISCHARGE DATE: 03/20/2017 INDICATION FOR HOSPITALIZATION: Angélica is a 21-year-old, single, male, referred to residential level treatment at [facility] on February 20, 2017, after prior arrest for possession of meth and marijuana, being in and out of [facility] for 10 months. His drug of choice on admission was cannabis. Second drug of choice is methamphetamines. Third drug of choice is alcohol. Please see his admission H and P for further details regarding his history of present illness, past medical history, physical exam, and assessment at the time of hospitalization. HOSPITAL COURSE: On admission, an elevated blood pressure was noted. Serial blood pressure and heart rate monitoring was requested. During treatment, his primary care counselor assigned was Kenya Lopez. During treatment, he underwent individual and group therapy sessions on drug and alcohol abuse dependency. Issues regarding his mother's and grief were addressed during the family portion of his treatment program. Relapse triggers were reviewed and the relapse prevention plan was outlined. He was overall accepting of substance abuse problems. He completed step #1 of Alcoholics Anonymous. Reason for discharge was completion of residential level treatment goals. Aftercare recommendations include sponsor assignment, outpatient counseling with active AA and NA meeting involvement at least 3 to 5 times weekly. LABORATORY AND X-RAY DATA DURING HOSPITALIZATION: None indicated. DISCHARGE MEDICATIONS: None. FINAL DISCHARGE DIAGNOSES: Include: 1. Stimulant use disorder, severe in full sustained remission. 2. Cannabis use disorder, severe in full sustained remission. 3. Alcohol use disorder, moderate in full sustained remission. 4. Exogenous obesity. 5. Tobacco use disorder. PROCEDURES: Include drug and alcohol abuse dependency treatment and counseling. Please see his hospital record for further details. Braxton Dillon MD/ abigail JOB #: [id number] CC: Braxton Dillon MD, Attending Physician NO FAMILY PHYSICIAN, Family Physician
== END 2017-03-20 10:14 | disposition home or self-care (01) | DRG 895 ==
LOC: ADTC 13:31
PROVIDERS: ADMIT Family Medicine
PROC: HZ43ZZZ Group Counseling for Substance Abuse Treatment, 12-Step (ICD-10-PCS; principal; 2017-02-20)
PROC: HZ34ZZZ Individual Counseling for Substance Abuse Treatment, Interpersonal (ICD-10-PCS; principal; 2017-02-20)
DX: F15.21 Other stimulant dependence, in remission (principal); E66.9 Obesity, unspecified; F12.21 Cannabis dependence, in remission; F10.21 Alcohol dependence, in remission; F17.210 Nicotine dependence, cigarettes, uncomplicated; R03.0 Elevated blood-pressure reading, without diagnosis of hypertension; Z63.72 Alcoholism and drug addiction in family; Z65.3 Problems related to other legal circumstances